=== PATIENT | female | born 1955 | race Two or more races ===

== ENCOUNTER 2023-02-08 12:45 | Inpatient (IN) | payer OTHER ==
[~2023-02-08] VITALS: Ht 162.6 cm; Wt 66.2 kg
[~2023-02-08 12:45] MED LIST: AVALIDE 300-12.1 TAB PO; LOTREL 10/40 MG1 CAP PO; METFORMIN HCL500 MG PO
[2023-02-08] MEDS ORDERED: LOTREL 10-40 M1 EACH PO (16:05)
[2023-02-08] MEDS ORDERED: FARYDAK10 MG PO (16:05)
[2023-02-08] MEDS ORDERED: CARDURA1 MG PO (16:06)
[2023-02-08] MEDS ORDERED: CLONAZEPAM1 MG PO (16:06)
== END 2023-02-13 12:28 | disposition home or self-care (01) | DRG 735 ==
LOC: O/R 02-11 06:35 → SURG 02-11 07:00 → OB/GYN 02-11 21:50
PROVIDERS: ADMIT Obstetrics & Gynecology Gynecologic Oncology; ATTEND Obstetrics & Gynecology Gynecologic Oncology
PROC: 0UT90ZZ Resection of Uterus, Open Approach (ICD-10-PCS; 2023-02-11)
PROC: 0DBW0ZZ Excision of Peritoneum, Open Approach (ICD-10-PCS; 2023-02-11)
PROC: 0UT70ZZ Resection of Bilateral Fallopian Tubes, Open Approach (ICD-10-PCS; 2023-02-11)
PROC: 0UT20ZZ Resection of Bilateral Ovaries, Open Approach (ICD-10-PCS; 2023-02-11)
PROC: 0DBU0ZZ Excision of Omentum, Open Approach (ICD-10-PCS; 2023-02-11)
PROC: 0DTJ0ZZ Resection of Appendix, Open Approach (ICD-10-PCS; 2023-02-11)
PROC: 3E1M38Z Irrigation of Peritoneal Cavity using Irrigating Substance, Percutaneous Approach (ICD-10-PCS; 2023-02-11)
PROC: 07TC0ZZ Resection of Pelvis Lymphatic, Open Approach (ICD-10-PCS; principal; 2023-02-11 07:00)
DX: C56.2 Malignant neoplasm of left ovary (principal); D25.1 Intramural leiomyoma of uterus; N84.0 Polyp of corpus uteri; Z20.822 Contact with and (suspected) exposure to COVID-19

== ENCOUNTER 2024-02-24 10:11 | Day surgery (SDC) | payer OTHER ==
[2024-02-17 08:19] LABS: HEMATOCRIT 45.9 % (36.0-45.00); HEMOGLOBIN 15.7 g/dL (12.0-15.00); MEAN CELL VOLUME 91.8 fL (80.00-100.00); MEAN CORPUSCULAR HEMOGLOBIN 31.4 pg (27.00-32.0); MEAN CORPUSCULAR HGB CONC 34.2 g/dl (32.0-36.0); PLATELET COUNT 254 K/uL (150-450); RED CELL DISTRIBUTION WIDTH 13.7 % (11.5-14.5)
[2024-02-17 08:42] LABS: URINE APPEARANCE Clear; URINE BILIRRUBIN Negative (NEGATIVE); URINE BLOOD Negative; URINE COLOR Yellow; URINE KETONE Negative (NEGATIVE); URINE LEUKOCYTE Negative; URINE NITRATE Negative; URINE UROBILINOGEN 0.2 E.U./dl
[2024-02-17 08:45] LABS: URINE EPITHELIAL CELLS 19.4 uL (0.0-38.8); URINE WBC 30.7 uL (0.0-23.2)
[2024-02-17 08:58] LABS: URINE CAST 0.45 uL (0.0-1.40); URINE GLUCOSE >=1000 MG/DL (NEGATIVE); URINE PROTEIN 300 (NEGATIVE); URINE RBC 1.2 uL (0.0-20.8)
[2024-02-17 09:23] LABS: INR 0.98; PARTIAL THROMBOPLASTIN TIME 27.1 SECONDS (22.0-34.0); PROTHROMBIN TIME 10.3 SECONDS (9.0-11.5)
[2024-02-17 09:35] LABS: CALCIUM 9.8 mg/dL (8.5-10.1); CREATININE SERUM 0.68 mg/dL (0.55-1.02); GFR 86.04; POTASSIUM 3.55 mEq/L (3.5-5.1)
[~2024-02-24 10:11] MED LIST changes: +CARDURA1 MG PO; +CLONAZEPAM1 MG PO; +FARXIGA10 MG PO; +FARYDAK10 MG PO; +FENOFIBRATE145 MG PO; +GLIMEPIRIDE2 MG; +LOTREL 10-40 M1 EACH PO; +TOPROL XL100 M1 PO
[2024-02-24] MEDS ORDERED: CEFAZOLIN SODIUM 1,000 MG VIAL ONE (13:07)
[2024-02-24] MEDS ORDERED: TYLENOL ARTHRI650 MG PO (13:32)
[2024-02-24] MEDS ORDERED: KETO10TA2 PO (13:32)
[2024-02-24] MEDS ORDERED: MIRALAX17 GM PO (13:32)
[2024-02-24] MEDS ORDERED: GABAPENTIN100 M2 PO (13:32)
[2024-02-24] MEDS ORDERED: BUPIVACAINE HCL/MPF 0.5% 30ML VIAL ONE (13:32)
[2024-02-24] MEDS ORDERED: TRAMADOL HCL50 MG PO (13:32)
[2024-02-24] MEDS ORDERED: KETOROLAC TROMETHAMINE 30 MG VIAL ONE (14:05)
== END 2024-02-24 17:25 | disposition home or self-care (01) ==
LOC: CIR.AMB 10:11
PROVIDERS: ATTEND Surgery
DX: K43.0 Incisional hernia with obstruction, without gangrene (principal)
CPT/HCPCS: 49594; C1781